=== PATIENT | male | born 1965 | race Caucasian/White ===

== ENCOUNTER 2017-09-18 13:33 | Emergency (ER) | payer MEDICAID, OTHER ==
[2017-09-18 14:12] LABS: URINE BILIRUBIN NEGATIVE (NEGATIVE); URINE BLOOD 1+ (NEGATIVE); URINE CLARITY Clear (Clear); URINE COLOR Yellow (YELLOW); URINE GLUCOSE (UA) NORMAL (Normal); URINE LEUKOCYTE ESTERASE NEG Leu/uL (Negative); URINE PROTEIN NEGATIVE (NEGATIVE); URINE UROBILINOGEN NORMAL mg/dL (0.2-1.0)
--- NOTE | 2017-09-18 14:34 | C.PDOC ---
History Of Present Illness 52 year old male presents to the ED for evaluation of left flank pain which began one week ago. Patient notes the pain resolved 3 days ago. He noticed blood -tinged urine that has persisted, which prompted this ED visit. He denies fever , chills, abdominal pain, testicular pain, penile pain or concern for sexually transmitted disease. Chief Complaint (Nursing): Male Genitourinary History Per: Patient History/Exam Limitations: no limitations Onset/Duration Of Symptoms: Days Current Symptoms Are (Timing): Better Quality Of Discomfort: denies: "Pain" Associated Symptoms: Urinary Symptoms (blood-tinged urine ). denies: Fever, Chills Additional History Per: Patient Past Medical History Reviewed: Historical Data, Nursing Documentation, Vital Signs Vital Signs: Last Vital Signs Temp 97.6 F 09/18/17 14:45 Pulse 76 09/18/17 14:45 Resp 16 09/18/17 14:45 BP 116/74 09/18/17 14:45 Pulse Ox 98 09/18/17 17:04 - Medical History PMH: No Chronic Diseases Surgical History: No Surg Hx Family History: States: Unknown Family Hx - Social History Hx Alcohol Use: No Hx Substance Use: No - Immunization History Hx Tetanus Toxoid Vaccination: Yes Hx Influenza Vaccination: No Hx Pneumococcal Vaccination: No Review Of Systems Constitutional: Negative for: Fever, Chills Gastrointestinal: Negative for: Abdominal Pain Genitourinary: Positive for: Other (blood tinged urine ). Negative for: Penile Pain Physical Exam - Physical Exam Appears: Non-toxic, No Acute Distress, Other (comfortable ) Skin: Normal Color, Warm, Dry Head: Atraumatic, Normacephalic Eye(s): bilateral: Normal Inspection Oral Mucosa: Moist Neck: Supple Chest: Symmetrical, No Deformity, No Tenderness Cardiovascular: Rhythm Regular Respiratory: Normal Breath Sounds, No Rales, No Rhonchi, No Wheezing Gastrointestinal/Abdominal: Soft, No Tenderness, No Guarding, No Rebound Extremity: Normal ROM, Capillary Refill (less than 2 seconds ) Neurological/Psych: Oriented x3, Normal Speech, Normal Cognition ED Course And Treatment O2 Sat by Pulse Oximetry: 98 (on RA) Pulse Ox Interpretation: Normal Medical Decision Making Medical Decision Making: Impression: 52 year old male with bloog-tinged urine Plan: * urine culture * urinalysis * reassess and disposition Progress: urine culture obtained and sent to lab for further evaluation. Urinalysis ordered. Leukocyte esterase and WBC results are within normal limits. Case discussed with Dr. Lucas, who agrees that there is no need for antibiotics at this time. On re-examination, patient is resting comfortably, showing no signs of distress and is stable for discharge. Patient is advised to follow up with his PMD within 1-2 days for further evaluation. Disposition Counseled Patient/Family Regarding: Diagnosis, Need For Followup - Disposition Referrals: Param Rivera MD [Staff Provider] - Disposition: HOME/ ROUTINE Disposition Time: 14:34 Condition: GOOD Additional Instructions: Beber mucho lquido Seguimiento en la clnica y con el urlogo si los sntomas persisten Regrese al departamento de emergencia en cualquier momento si los sntomas persisten o empeoran. Instructions: Blood in the Urine (Hematuria), Adult (DC) Forms: [employer] (Frisian) Print Language: LAO - Clinical Impression Clinical Impression: Hematuria - PA / IMPLEMENT MECHANIC / Resident Statement MD/DO has reviewed & agrees with the documentation as recorded. - Scribe Statement The provider has reviewed the documentation as recorded by the Scribe (Keila Dunham) All medical record entries made by the Scribe were at my direction and personally dictated by me. I have reviewed the chart and agree that the record accurately reflects my personal performance of the history, physical exam, medical decision making, and the department course for this patient. I have also personally directed, reviewed, and agree with the discharge instructions and disposition.
[2017-09-18 14:49] VITALS: BP 116/74; PULSE 76; RESP 16; TEMP 97.6
[2017-09-18 15:48] VITALS: O2SAT 98
== END 2017-09-18 14:35 | disposition home or self-care (01) ==
LOC: C.ER 13:33
DX: R31.9 Hematuria, unspecified (principal)

== ENCOUNTER 2018-04-09 19:56 | Emergency (ER) | payer MEDICAID, OTHER ==
--- NOTE | 2018-04-09 20:35 | C.PDOC ---
History Of Present Illness 52 year old male presents to the ED complaining of constipation. Reports last bowel movement was 3 days ago. Denies any abdominal pain, fever, chills, or any other associated symptoms. Chief Complaint (Nursing): Abdominal Pain History Per: Patient History/Exam Limitations: no limitations Onset/Duration Of Symptoms: Days (3) Current Symptoms Are (Timing): Still Present Associated Symptoms: Constipation. denies: Fever, Chills, Nausea, Vomiting Last Bowel Movement: Days Ago (3) Past Medical History Reviewed: Historical Data, Nursing Documentation, Vital Signs Vital Signs: Last Vital Signs Temp 97.8 F 04/09/18 20:09 Pulse 75 04/09/18 20:09 Resp 20 04/09/18 20:09 BP 151/87 H 04/09/18 20:09 Pulse Ox 98 04/09/18 20:09 - Medical History PMH: No Chronic Diseases Surgical History: No Surg Hx Family History: States: No Known Family Hx - Social History Hx Alcohol Use: No Hx Substance Use: No - Immunization History Hx Tetanus Toxoid Vaccination: Yes Hx Influenza Vaccination: No Hx Pneumococcal Vaccination: No Review Of Systems Except As Marked, All Systems Reviewed And Found Negative. Constitutional: Negative for: Fever, Chills Gastrointestinal: Positive for: Constipation. Negative for: Nausea, Vomiting, Abdominal Pain Physical Exam - Physical Exam Appears: Non-toxic, No Acute Distress Skin: Warm, Dry, No Rash Head: Normacephalic Eye(s): bilateral: Normal Inspection Neck: Normal ROM, Supple Chest: Symmetrical Cardiovascular: Rhythm Regular Respiratory: Normal Breath Sounds, No Rales, No Rhonchi, No Wheezing Gastrointestinal/Abdominal: Soft, No Tenderness, No Guarding, No Rebound Rectal: Normal Exam, No Mass Extremity: Normal ROM Neurological/Psych: Oriented x3, Normal Speech Gait: Steady ED Course And Treatment O2 Sat by Pulse Oximetry: 98 (RA) Pulse Ox Interpretation: Normal Medical Decision Making Medical Decision Making: Plan - Fleet Enema 135ml ID On reevaluation, status post bowel movement, patient reports feeling better. Patient feels comfortable going home and will be discharged. Patient given follow up instructions. Instructed to return to ER if symptoms worsen or new symptoms arise. Disposition Counseled Patient/Family Regarding: Diagnosis - Disposition Referrals: [facility] [Outside] Disposition: HOME/ ROUTINE Disposition Time: 21:03 Condition: STABLE Prescriptions: Docusate Sodium [Colace] 100 mg PO BID #30 capsule Instructions: Constipation in Adults, High Fiber Diet Forms: [facility] (Telugu), Gen Discharge Inst Moldovan Print Language: PUERTO RICAN - POA Present On Arrival: None - Clinical Impression Clinical Impression: Constipation - Scribe Statement The provider has reviewed the documentation as recorded by the Scribe Sylvia Milligan All medical record entries made by the Scribe were at my direction and personally dictated by me. I have reviewed the chart and agree that the record accurately reflects my personal performance of the history, physical exam, medical decision making, and the department course for this patient. I have also personally directed, reviewed, and agree with the discharge instructions and disposition.
[2018-04-09 21:17] VITALS: BP 132/80; PULSE 81; RESP 16; TEMP 97.9
[2018-04-09 21:27] VITALS: O2SAT 98
== END 2018-04-09 21:16 | disposition home or self-care (01) ==
LOC: C.ER 19:56
DX: K59.00 Constipation, unspecified (principal)

== ENCOUNTER 2018-08-30 03:03 | Emergency (ER) | payer OTHER ==
--- NOTE | 2018-08-30 03:11 | C.PDOC ---
History Of Present Illness Patient presents with an eretion of about 8 hours after injecting meds for ED. Dull throbbing pain., Time Seen by Provider: 08/30/18 03:11 History Per: Patient History/Exam Limitations: no limitations Onset/Duration Of Symptoms: Hrs (8) Current Symptoms Are (Timing): Still Present Severity: Severe Pain Scale Rating Of: 6 Quality Of Discomfort: Pressure Associated Symptoms: denies: Fever, Chills, Nausea, Vomiting Alleviating Factors: None Recent travel outside of the [place]: No Additional History Per: Patient Past Medical History Reviewed: Historical Data, Nursing Documentation, Vital Signs Family History: States: No Known Family Hx - Social History Hx Alcohol Use: No Hx Substance Use: No - Immunization History Hx Tetanus Toxoid Vaccination: Yes Hx Influenza Vaccination: No Hx Pneumococcal Vaccination: No Review Of Systems Constitutional: Negative for: Fever, Chills Genitourinary: Positive for: Penile Pain, Other (erect). Negative for: Dysuria, Frequency Skin: Negative for: Rash Neurological: Negative for: Weakness Psych: Negative for: Anxiety Physical Exam - Physical Exam Appears: Non-toxic Male Genital: No Testicular Tenderness, No Circumcised, Other (erect) Neurological/Psych: Oriented x3 ED Course And Treatment O2 Sat by Pulse Oximetry: 99 Pulse Ox Interpretation: Normal Progress Note: 4:02AM eretion slowly decreasing. Improvement in discomfort. Will continue to monitor. Spoke with dr Hawthorne - will come and see the pt in the ed. Dr hawthorne drained a the penis and injecte 500 micrograms of phenylepherine with resolution of the priapism Disposition Counseled Patient/Family Regarding: Studies Performed, Diagnosis - Disposition Referrals: Chaka Hawthorne MD [Staff Provider] - Disposition: HOME/ ROUTINE Disposition Time: 03:11 Condition: FAIR Instructions: Priapism Print Language: OCCITAN - Clinical Impression Clinical Impression: Priapism
[2018-08-30 03:28] VITALS: PULSE 69
[2018-08-30 06:12] VITALS: BP 130/76; RESP 16; TEMP 97.9
[2018-08-30 06:13] VITALS: O2SAT 99
--- NOTE | 2018-08-30 19:17 | OP ---
PROCEDURE DATE: 08/30/2018 PREOPERATIVE DIAGNOSIS: Priapism, secondary to injection of Trimix medication. POSTOPERATIVE DIAGNOSIS: Priapism, secondary to injection of Trimix medication. PROCEDURE: Evacuation of hematoma, of the corpus cavernosum, and irrigation of corpus cavernosum with phenylephrine. SURGEON: Marco Hawthorne MD ESTIMATED BLOOD LOSS: About 100 mL. COMPLICATIONS: There were no complications. At the termination of the procedure, the patient had a flaccid erection that has not returned after observation. INDICATIONS: See history and physical, consultation. The patient is basically very pleasant 53-year-old gentleman with erectile dysfunction. He had tried oral therapy. We discussed options and he wanted to use Trimix medication. So after discussing options with the patient, we gave the patient clear instructions. Now that he has had a persistent erection as per our instruction, he came to the emergency room, he is being treated as an emergency. He still has a rigid erection about 6 hours after the injection. I discussed with the patient the risks and benefits and alternatives but my strong recommendation is that in fact do the above-listed procedure. So, under sterile technique, we injected the patient here in the emergency room. We inserted the needle and evacuated the blood without difficulty. We used an 18-gauge needle. Once we did get, we got the penis to be flaccid, but slowly as we watch it, it regains its tumescence. So, we monitored a little further and we injected the patient. We diluted down the phenylephrine. It is a 10 mg (10,000 mcg) container, we diluted down to be about 0.5 mL or 500 mcg, injected this gently into the corpora. Observed the patient for few minutes and then it irrigated itself. At this point, we evacuated more and penis. We now observed the patient further and there is no recurrence. We monitored the patient closely. We gave another 0.5 mL and again observed the patient. Again, there is no recurrence of this, his penis completely detumesced. At this point, we applied pressure to the injection site and we then applied a Kerlix wrap. We observed the patient and there were no further erections. The patient feels well. The patient tolerated the procedure without complications. Marco Hawthorne MD [facility] # [id number]
--- NOTE | 2018-08-30 19:25 | CON ---
DATE: 08/30/2018 UROLOGY CONSULT REQUESTING PHYSICIAN: Larisa Cerna MD REASON FOR CONSULTATION: Priapism. HISTORY OF PRESENT ILLNESS: Mr. James Portillo is a patient known to me. See the dictated note from the office note. On 08/29/2018, we injected the patient with Trimix medication, which includes prostaglandin, papaverine and phentolamine. The patient has been given instructions to call me if the erection persists. The purpose of the injection is to give the patient to create an erection. The patient has baseline sexual dysfunction. I can see this all from the office notes. The patient was then given instructions that if the erection persists for 4 hours, he should call, or if there is pain anywhere along the way, is to call me. The patient then called me, and I got a phone call from the emergency room overnight. When the patient called me, I recommended that he come to the emergency room. The emergency room doctor initially started seeing the patient, and he made the plan; see below for treatment for this. The patient was given ice packs and oral Sudafed. So far, there has been no real relief. The erection persists. See the separately dictated procedure note, for which the patient is here now. PAST MEDICAL AND SURGICAL HISTORY: As listed on the chart above. Otherwise, unremarkable from a urology standpoint. REVIEW OF SYSTEMS: All listed above. SOCIAL HISTORY: Essentially unremarkable. (We explained to the patient in the office with translation, the plans and recommendations, and again now). I explained to the patient what I am planning to do. See separately dictated procedure note. PHYSICAL EXAMINATION: GENERAL: A well nourished male, who is currently resting comfortably, not in very much great discomfort. GENITOURINARY: With the erection, the patient's phallus is as follows: The abdomen is relatively soft. The patient has a normal male phallus that is in erect state. The corpus cavernosum are both solidly erect. The glans and spongiosum, perhaps slightly less. The remainder of the physical exam is otherwise unremarkable. See below. Procedure note is dictated as a separate dictated procedure note. DIAGNOSIS: Priapism (this is now resolved). PLAN: The plan is as follows: The patient was treated with irrigation of phenylephrine via the corpora. . See again the separately dictated procedure note. well. We watched the patient, observed him, and it remained in a flaccid state. Once the patient remained flaccid, and once feeling better, we provided him food, and subsequently discharged home. Marco Hawthorne MD
== END 2018-08-30 07:09 | disposition home or self-care (01) ==
LOC: C.ER 03:03
DX: N48.30 Priapism, unspecified (principal)